=== PATIENT | female | born 1940 | race Caucasian/White ===

== ENCOUNTER → 2020-07-12 | Outpatient (CLI) | payer OTHER | END | disposition home or self-care (01) | LOC: NUCLEAR 10:00 | PROVIDERS: ATTEND Internal Medicine Cardiovascular Disease | DX: I11.9 Hypertensive heart disease without heart failure (principal); R94.31 Abnormal electrocardiogram [ECG] [EKG]; E03.8 Other specified hypothyroidism ==

== ENCOUNTER 2020-11-07 11:56 | Outpatient (CLI) | payer OTHER | END 2020-11-07 12:09 | disposition home or self-care (01) | LOC: SONOGRAMA 11:56 | DX: N64.59 Other signs and symptoms in breast (principal); N64.4 Mastodynia ==

== ENCOUNTER 2021-09-04 08:01 | Outpatient (CLI) | payer OTHER | END 2021-09-04 08:07 | disposition home or self-care (01) | LOC: SONOGRAMA 08:01 → MAMO-SONO 08:15 | PROVIDERS: ATTEND Internal Medicine Endocrinology, Diabetes & Metabolism | DX: K80.80 Other cholelithiasis without obstruction (principal); K76.0 Fatty (change of) liver, not elsewhere classified; D25.2 Subserosal leiomyoma of uterus ==